=== PATIENT | male | born 1995 | race Caucasian/White ===

== ENCOUNTER 2017-11-04 02:08 | Emergency (ER) | payer OTHER ==
[~2017-11-04] VITALS: Ht 175.3 cm; Wt 63.5 kg
[2017-11-04] MEDS ORDERED: BETAMETHASONE D15 G2 TOP (05:41)
[2017-11-04] MEDS ORDERED: MEDROL8 MG PO (05:41)
[2017-11-04] MEDS ORDERED: BENADRYL25 MG PO (05:41)
== END 2017-11-04 05:45 | disposition home or self-care (01) ==
LOC: ER 02:08
DX: L23.9 Allergic contact dermatitis, unspecified cause (principal)